=== PATIENT | male | born 1955 | race Caucasian/White ===

== ENCOUNTER → 2021-05-11 | Outpatient (CLI) | payer OTHER | LOC: KOH-I 08:00 | DX: M50.322 Other cervical disc degeneration at C5-C6 level (principal) | CPT/HCPCS: 72141 ==

== ENCOUNTER → 2021-09-11 | Outpatient (CLI) | payer OTHER | LOC: RAD 09:37 | DX: G95.9 Disease of spinal cord, unspecified (principal); Z98.1 Arthrodesis status | CPT/HCPCS: 72040 ==

== ENCOUNTER → 2021-11-18 | Outpatient (CLI) | payer OTHER | LOC: US 13:05 | DX: N20.0 Calculus of kidney (principal); M47.12 Other spondylosis with myelopathy, cervical region | CPT/HCPCS: 72040 ==